=== PATIENT | male | born 1965 | race Caucasian/White ===

== ENCOUNTER 2017-07-19 14:13 | Emergency (ER) | payer OTHER ==
[2017-07-19 16:39] LABS: ADD MAN DIFF? NO
[2017-07-19 16:44] LABS: WHITE BLOOD COUNT 7.9 10^3/ul (4.8-10.8)
[2017-07-19 16:44] LABS: BASOPHILS % 0.4 % (0.0-2.0); EOSINOPHILS # 0.1 10^3/ul (0.0-0.5); EOSINOPHILS % 0.9 % (0.0-7.0); HEMATOCRIT 45.7 % (42.0-52.0); HEMOGLOBIN 15.6 g/dl (14.0-18.0); LYMPHOCYTES # 1.6 10^3/ul (0.8-2.9); LYMPHOCYTES % 20.1 % (15.0-51.0); MEAN CORPUSCULAR HEMOGLOBIN 30.8 pg (29.0-33.0); MEAN CORPUSCULAR HGB CONC 34.1 g/dl (32.0-37.0); MEAN CORPUSCULAR VOLUME 90.3 fl (82.0-101.0); MEAN PLATELET VOLUME 9.4 fl (7.4-10.4); MONOCYTE # 0.5 10^3/ul (0.3-0.9); MONOCYTES % 6.7 % (0.0-11.0); NEUTROPHIL # 5.7 10^3/ul (1.6-7.5); NEUTROPHILS % 71.5 % (39.0-77.0); PLATELET COUNT 268 10^3/UL (140-415); RED BLOOD COUNT 5.06 10^6/ul (4.70-6.10); RED CELL DISTRIBUTION WIDTH 12.7 % (11.5-14.5)
[2017-07-19 17:04] LABS: ANION GAP 17 (8-16); BLOOD UREA NITROGEN 11 mg/dl (7-20); CALCIUM 9.3 mg/dl (8.4-10.2); CARBON DIOXIDE 27 mmol/L (21-31); CHLORIDE 102 mmol/L (97-110); CREATININE 1.01 mg/dl (0.61-1.24); GLUCOSE 132 mg/dl (70-220); POTASSIUM 3.6 mmol/L (3.5-5.1); SODIUM 142 mmol/L (135-144)
[2017-07-19] MEDS: KETOROLAC 15 MG INJ IV (17:15)
[2017-07-19] MEDS: HYDROCODONE/APAP (5/325) TAB PO (17:17)
== END 2017-07-19 18:49 | disposition home or self-care (01) ==
LOC: FTE 14:13
DX: G51.0 Bell's palsy (principal); R40.2142 Coma scale, eyes open, spontaneous, at arrival to emergency department; R40.2252 Coma scale, best verbal response, oriented, at arrival to emergency department; R40.2362 Coma scale, best motor response, obeys commands, at arrival to emergency department
CPT/HCPCS: 70450; 80048; 85025; 96374; 99285-25

== ENCOUNTER 2017-07-20 08:47 | Inpatient (IN) | payer OTHER ==
[2017-07-20] MEDS: ASPIRIN 325 MG TAB PO (09:53)
[2017-07-20] MEDS: SOD CHLORIDE 0.9% 1,000 ML IV ×2 (10:01→14:28)
[2017-07-20 10:11] LABS: ADD MAN DIFF? NO
[2017-07-20 10:14] LABS: WHITE BLOOD COUNT 8.4 10^3/ul (4.8-10.8)
[2017-07-20 10:14] LABS: BASOPHILS % 0.4 % (0.0-2.0); EOSINOPHILS # 0.1 10^3/ul (0.0-0.5); EOSINOPHILS % 1.4 % (0.0-7.0); HEMATOCRIT 47.3 % (42.0-52.0); HEMOGLOBIN 15.8 g/dl (14.0-18.0); LYMPHOCYTES # 1.6 10^3/ul (0.8-2.9); LYMPHOCYTES % 19.2 % (15.0-51.0); MEAN CORPUSCULAR HEMOGLOBIN 29.9 pg (29.0-33.0); MEAN CORPUSCULAR HGB CONC 33.4 g/dl (32.0-37.0); MEAN CORPUSCULAR VOLUME 89.4 fl (82.0-101.0); MEAN PLATELET VOLUME 9.3 fl (7.4-10.4); MONOCYTE # 0.8 10^3/ul (0.3-0.9); MONOCYTES % 9.4 % (0.0-11.0); NEUTROPHIL # 5.8 10^3/ul (1.6-7.5); NEUTROPHILS % 69.2 % (39.0-77.0); PLATELET COUNT 267 10^3/UL (140-415); RED BLOOD COUNT 5.29 10^6/ul (4.70-6.10); RED CELL DISTRIBUTION WIDTH 12.7 % (11.5-14.5)
[2017-07-20 10:31] LABS: ALANINE AMINOTRANSFERASE 59 IU/L (13-69); ALBUMIN 4.4 g/dl (3.3-4.9); ALBUMIN/GLOBULIN RATIO 1.18; ALKALINE PHOSPHATASE 70 IU/L (42-121); ANION GAP 17 (8-16); ASPARTATE AMINO TRANSFERASE 28 IU/L (15-46); BILIRUBIN,INDIRECT 0.3 mg/dl (0-1.1); BILIRUBIN,TOTAL 0.3 mg/dl (0.2-1.3); BLOOD UREA NITROGEN 13 mg/dl (7-20); CALCIUM 9.2 mg/dl (8.4-10.2); CARBON DIOXIDE 24 mmol/L (21-31); CHLORIDE 105 mmol/L (97-110); CHOL/HDL RATIO 4.1 RATIO; CHOLESTEROL 174 mg/dl (100-200); CREATININE 0.97 mg/dl (0.61-1.24); GLUCOSE 131 mg/dl (70-220); HDL CHOLESTEROL 42 mg/dl (28-71); LDL CHOLESTEROL,CALCULATED 105 mg/dl; POTASSIUM 3.8 mmol/L (3.5-5.1); SODIUM 142 mmol/L (135-144); TOTAL PROTEIN 8.1 g/dl (6.1-8.1); TRIGLYCERIDES 137 mg/dl (0-149)
[2017-07-20 10:35] LABS: INR 0.98; PROTIME 13.1 Sec (11.9-14.9)
[2017-07-20 10:36] LABS: PARTIAL THROMBOPLASTIN TIME 24.3 Sec (25.0-35.0)
[2017-07-20 10:47] LABS: TROPONIN-I < 0.012 ng/ml (0.00-0.12)
[2017-07-20 11:18] LABS: AMPHETAMINE/METHAMPHETAMINE Negative (NEGATIVE); BARBITURATES Negative (NEGATIVE); BENZODIAZEPINES Negative (NEGATIVE); CANNABINOIDS Negative (NEGATIVE); COCAINE Negative (NEGATIVE); OPIATES Negative (NEGATIVE)
[2017-07-20] MEDS: ASPIRIN 300 MG SUPP PR (11:49)
[2017-07-20] MEDS ORDERED: ACETAMINOPHEN 325 MG TAB PO (14:30)
[2017-07-20] MEDS ORDERED: ONDANSETRON 4 MG INJ IV (14:30)
[2017-07-20] MEDS ORDERED: ACETAMINOPHEN 650 MG SUPP PR (16:00)
[2017-07-20] MEDS ORDERED: NACL 0.9% 3 ML SYG IV (16:00)
[2017-07-20 16:42] LABS: HEMOGLOBIN A1C 5.5 % (0-5.9)
[2017-07-20] MEDS: DEXTROSE 5%-0.45% NACL 1,000 ML IV ×2 (18:49→22:08)
[2017-07-20] MEDS: ENOXAPARIN 40 MG/0.4 ML SYG SC (18:54)
[2017-07-20] MEDS: ATORVASTATIN 40 MG TAB PO (22:06)
[2017-07-21] MEDS: DEXTROSE 5%-0.45% NACL 1,000 ML IV ×3 (04:54→13:37)
[2017-07-21 08:03] LABS: ANION GAP 15 (8-16); BLOOD UREA NITROGEN 15 mg/dl (7-20); CALCIUM 8.9 mg/dl (8.4-10.2); CARBON DIOXIDE 28 mmol/L (21-31); CHLORIDE 105 mmol/L (97-110); CHOL/HDL RATIO 4.6 RATIO; CHOLESTEROL 154 mg/dl (100-200); CREATININE 1.06 mg/dl (0.61-1.24); GLUCOSE 110 mg/dl (70-220); HDL CHOLESTEROL 33 mg/dl (28-71); LDL CHOLESTEROL,CALCULATED 90 mg/dl; POTASSIUM 3.9 mmol/L (3.5-5.1); SODIUM 144 mmol/L (135-144); TRIGLYCERIDES 153 mg/dl (0-149)
[2017-07-21] MEDS: ASPIRIN 81 MG TAB PO (09:11)
[2017-07-21] MEDS: ACETAMINOPHEN 325 MG TAB PO ×2 (10:44→20:22)
[2017-07-21] MEDS: FAMOTIDINE 20 MG TAB PO ×2 (12:49→17:59)
[2017-07-21] MEDS: ATORVASTATIN 40 MG TAB PO (20:23)
[2017-07-21] MEDS: SOD CHLORIDE 0.9% 100 ML ×2 (20:27→21:03)
[2017-07-21] MEDS: IOHEXOL 100 ML ×2 (20:27→21:03)
[2017-07-22] MEDS: DEXTROSE 5%-0.45% NACL 1,000 ML IV ×2 (01:16→06:50)
[2017-07-22] MEDS: ACETAMINOPHEN 325 MG TAB PO ×2 (03:31→10:20)
[2017-07-22] MEDS: FAMOTIDINE 20 MG TAB PO ×2 (05:57→17:56)
[2017-07-22] MEDS: ASPIRIN 81 MG TAB PO (08:53)
[2017-07-22] MEDS: ONDANSETRON 4 MG INJ IV (08:53)
[2017-07-22 10:25] LABS: ALANINE AMINOTRANSFERASE 59 IU/L (13-69); ALBUMIN 3.8 g/dl (3.3-4.9); ALBUMIN/GLOBULIN RATIO 1.11; ALKALINE PHOSPHATASE 73 IU/L (42-121); ANION GAP 11 (8-16); ASPARTATE AMINO TRANSFERASE 31 IU/L (15-46); BILIRUBIN,INDIRECT 0.5 mg/dl (0-1.1); BILIRUBIN,TOTAL 0.5 mg/dl (0.2-1.3); BLOOD UREA NITROGEN 12 mg/dl (7-20); CALCIUM 9.2 mg/dl (8.4-10.2); CARBON DIOXIDE 26 mmol/L (21-31); CHLORIDE 110 mmol/L (97-110); CREATININE 0.99 mg/dl (0.61-1.24); GLUCOSE 124 mg/dl (70-220); POTASSIUM 3.7 mmol/L (3.5-5.1); SODIUM 143 mmol/L (135-144); TOTAL PROTEIN 7.2 g/dl (6.1-8.1)
[2017-07-22 11:15] LABS: PHOSPHORUS 3.7 mg/dl (2.5-4.9)
[2017-07-22 11:15] LABS: MAGNESIUM 2.2 mg/dl (1.7-2.5)
[2017-07-22] MEDS: ENOXAPARIN 40 MG/0.4 ML SYG SC (12:24)
[2017-07-22] MEDS: ATORVASTATIN 40 MG TAB PO (20:59)
== END 2017-07-22 23:20 | DRG 65 ==
LOC: E/R 08:47 → MS4 17:31
DX: I62.9 Nontraumatic intracranial hemorrhage, unspecified (principal); G81.94 Hemiplegia, unspecified affecting left nondominant side; R13.10 Dysphagia, unspecified; R29.810 Facial weakness; Z79.82 Long term (current) use of aspirin; E78.5 Hyperlipidemia, unspecified; K29.70 Gastritis, unspecified, without bleeding
CPT/HCPCS: 36415; 70450; 70496; 70498; 70544; 70553; 71045; 80048; 80053; 80061; 80307; 83036; 83735; 84100; 84484; 85025; 85610; 85730; 92610; 93005; 93306; 93880; 97110; 97116; 97163; 97165; 97535; 99285-25

== ENCOUNTER 2017-07-22 17:46 | Inpatient (IN) | payer OTHER ==
[2017-07-23] MEDS ORDERED: ONDANSETRON 4 MG INJ IV (00:30)
[2017-07-23] MEDS ORDERED: BISACODYL 10 MG SUPP PR (04:00)
[2017-07-23] MEDS ORDERED: LACTULOSE 30ML CUP PO (04:00)
[2017-07-23 06:47] LABS: ADD MAN DIFF? NO
[2017-07-23] MEDS: FAMOTIDINE 20 MG TAB PO ×2 (06:52→18:46)
[2017-07-23 06:54] LABS: BASOPHIL # 0.1 10^3/ul (0.0-0.1); BASOPHILS % 0.7 % (0.0-2.0); EOSINOPHILS # 0.8 10^3/ul (0.0-0.5); EOSINOPHILS % 8.3 % (0.0-7.0); HEMATOCRIT 45.6 % (42.0-52.0); HEMOGLOBIN 15.3 g/dl (14.0-18.0); LYMPHOCYTES # 2.6 10^3/ul (0.8-2.9); LYMPHOCYTES % 28.1 % (15.0-51.0); MEAN CORPUSCULAR HEMOGLOBIN 30.2 pg (29.0-33.0); MEAN CORPUSCULAR HGB CONC 33.6 g/dl (32.0-37.0); MEAN CORPUSCULAR VOLUME 90.1 fl (82.0-101.0); MEAN PLATELET VOLUME 9.5 fl (7.4-10.4); MONOCYTE # 0.7 10^3/ul (0.3-0.9); MONOCYTES % 8.1 % (0.0-11.0); NEUTROPHILS % 54.6 % (39.0-77.0); PLATELET COUNT 270 10^3/UL (140-415); RED BLOOD COUNT 5.06 10^6/ul (4.70-6.10); RED CELL DISTRIBUTION WIDTH 12.7 % (11.5-14.5)
[2017-07-23 06:54] LABS: WHITE BLOOD COUNT 9.2 10^3/ul (4.8-10.8)
[2017-07-23] MEDS: MAGNESIUM HYDROXIDE 30ML CUP PO (06:54)
[2017-07-23 07:06] LABS: ADD UMIC NO; UR ASCORBIC ACID NEGATIVE (NEGATIVE); UR BILIRUBIN (Dip) NEGATIVE (NEGATIVE); UR BLOOD (Dip) NEGATIVE (NEGATIVE); UR CLARITY CLEAR (CLEAR); UR COLOR YELLOW (YELLOW); UR GLUCOSE (Dip) NEGATIVE (NEGATIVE); UR KETONES (Dip) NEGATIVE (NEGATIVE); UR LEUKOCYTE ESTERASE (Dip) NEGATIVE Leu/ul (NEGATIVE); UR NITRITE (Dip) NEGATIVE (NEGATIVE); UR SPECIFIC GRAVITY (Dip) 1.019 (1.003-1.030); UR TOTAL PROTEIN (Dip) NEGATIVE (NEGATIVE); UR UROBILINOGEN (Dip) NEGATIVE (NEGATIVE)
[2017-07-23 07:13] LABS: ALANINE AMINOTRANSFERASE 56 IU/L (13-69); ALBUMIN 3.7 g/dl (3.3-4.9); ALBUMIN/GLOBULIN RATIO 1.19; ALKALINE PHOSPHATASE 66 IU/L (42-121); ANION GAP 13 (8-16); ASPARTATE AMINO TRANSFERASE 26 IU/L (15-46); BILIRUBIN,INDIRECT 0.4 mg/dl (0-1.1); BILIRUBIN,TOTAL 0.4 mg/dl (0.2-1.3); BLOOD UREA NITROGEN 16 mg/dl (7-20); CALCIUM 9.2 mg/dl (8.4-10.2); CARBON DIOXIDE 29 mmol/L (21-31); CHLORIDE 108 mmol/L (97-110); CREATININE 1.17 mg/dl (0.61-1.24); GLUCOSE 94 mg/dl (70-220); POTASSIUM 3.9 mmol/L (3.5-5.1); SODIUM 146 mmol/L (135-144); TOTAL PROTEIN 6.8 g/dl (6.1-8.1)
[2017-07-23] MEDS: DOCUSATE SODIUM 100 MG CAP PO ×2 (09:25→21:10)
[2017-07-23] MEDS: ASPIRIN 81 MG TAB PO (09:25)
[2017-07-23] MEDS: ENOXAPARIN 40 MG/0.4 ML SYG SC (09:26)
[2017-07-23] MEDS: SENNA TAB PO (21:00)
[2017-07-23] MEDS: ATORVASTATIN 40 MG TAB PO (21:10)
[2017-07-24] MEDS: ACETAMINOPHEN 325 MG TAB PO (01:51)
[2017-07-24] MEDS: FAMOTIDINE 20 MG TAB PO ×2 (05:28→19:01)
[2017-07-24] MEDS: ASPIRIN 81 MG TAB PO (09:50)
[2017-07-24] MEDS: DOCUSATE SODIUM 100 MG CAP PO ×2 (09:50→20:09)
[2017-07-24] MEDS: ENOXAPARIN 40 MG/0.4 ML SYG SC (09:54)
[2017-07-24] MEDS: ATORVASTATIN 40 MG TAB PO (20:09)
[2017-07-24] MEDS: SENNA TAB PO (20:10)
[2017-07-25] MEDS: ACETAMINOPHEN 325 MG TAB PO (01:23)
[2017-07-25] MEDS: FAMOTIDINE 20 MG TAB PO ×2 (06:28→17:45)
[2017-07-25] MEDS: ASPIRIN 81 MG TAB PO (09:14)
[2017-07-25] MEDS: DOCUSATE SODIUM 100 MG CAP PO ×2 (09:14→20:52)
[2017-07-25] MEDS: ENOXAPARIN 40 MG/0.4 ML SYG SC (09:15)
[2017-07-25] MEDS: ATORVASTATIN 40 MG TAB PO (20:51)
[2017-07-25] MEDS: SENNA TAB PO (20:52)
[2017-07-26] MEDS: FAMOTIDINE 20 MG TAB PO ×2 (06:16→18:17)
[2017-07-26] MEDS: ASPIRIN 81 MG TAB PO (11:06)
[2017-07-26] MEDS: DOCUSATE SODIUM 100 MG CAP PO ×2 (11:06→20:21)
[2017-07-26] MEDS: ENOXAPARIN 40 MG/0.4 ML SYG SC (11:09)
[2017-07-26] MEDS: ZOLPIDEM 5 MG TAB PO (20:20)
[2017-07-26] MEDS: ATORVASTATIN 40 MG TAB PO (20:20)
[2017-07-26] MEDS: SENNA TAB PO (20:22)
[2017-07-27] MEDS: FAMOTIDINE 20 MG TAB PO ×2 (06:19→18:03)
[2017-07-27] MEDS: DOCUSATE SODIUM 100 MG CAP PO ×2 (09:20→20:36)
[2017-07-27] MEDS: ASPIRIN 81 MG TAB PO (09:20)
[2017-07-27] MEDS: ENOXAPARIN 40 MG/0.4 ML SYG SC (09:25)
[2017-07-27] MEDS: SENNA TAB PO (20:35)
[2017-07-27] MEDS: ATORVASTATIN 40 MG TAB PO (20:35)
[2017-07-28] MEDS: FAMOTIDINE 20 MG TAB PO ×2 (06:07→17:56)
[2017-07-28] MEDS: ASPIRIN 81 MG TAB PO (08:38)
[2017-07-28] MEDS: DOCUSATE SODIUM 100 MG CAP PO ×2 (08:38→21:00)
[2017-07-28] MEDS: ENOXAPARIN 40 MG/0.4 ML SYG SC (08:39)
[2017-07-28] MEDS: ATORVASTATIN 40 MG TAB PO (20:20)
[2017-07-28] MEDS: SENNA TAB PO (21:00)
[2017-07-29] MEDS: FAMOTIDINE 20 MG TAB PO ×2 (06:21→18:04)
[2017-07-29] MEDS: DOCUSATE SODIUM 100 MG CAP PO ×2 (09:08→22:00)
[2017-07-29] MEDS: ASPIRIN 81 MG TAB PO (09:09)
[2017-07-29] MEDS: ENOXAPARIN 40 MG/0.4 ML SYG SC (09:13)
[2017-07-29] MEDS: SENNA TAB PO (22:00)
[2017-07-29] MEDS: ATORVASTATIN 40 MG TAB PO (22:17)
[2017-07-30] MEDS: ACETAMINOPHEN 325 MG TAB PO (03:19)
[2017-07-30] MEDS: FAMOTIDINE 20 MG TAB PO (06:29)
[2017-07-30] MEDS: DOCUSATE SODIUM 100 MG CAP PO ×2 (09:39→20:26)
[2017-07-30] MEDS: ASPIRIN 81 MG TAB PO (09:39)
[2017-07-30] MEDS: ENOXAPARIN 40 MG/0.4 ML SYG SC (09:40)
[2017-07-30] MEDS: ATORVASTATIN 40 MG TAB PO (20:26)
[2017-07-30] MEDS: SENNA TAB PO (20:26)
[2017-07-31] MEDS: FAMOTIDINE 20 MG TAB PO ×2 (06:21→18:28)
[2017-07-31] MEDS: ASPIRIN 81 MG TAB PO (08:48)
[2017-07-31] MEDS: DOCUSATE SODIUM 100 MG CAP PO ×2 (08:49→20:25)
[2017-07-31] MEDS: ENOXAPARIN 40 MG/0.4 ML SYG SC (08:50)
[2017-07-31] MEDS: ATORVASTATIN 40 MG TAB PO (20:25)
[2017-07-31] MEDS: SENNA TAB PO (20:25)
[2017-08-01] MEDS: FAMOTIDINE 20 MG TAB PO ×2 (06:07→17:17)
[2017-08-01] MEDS: ASPIRIN 81 MG TAB PO (09:01)
[2017-08-01] MEDS: DOCUSATE SODIUM 100 MG CAP PO ×2 (09:01→20:43)
[2017-08-01] MEDS: ENOXAPARIN 40 MG/0.4 ML SYG SC (09:02)
[2017-08-01] MEDS: ATORVASTATIN 40 MG TAB PO (20:40)
[2017-08-01] MEDS: SENNA TAB PO (20:43)
[2017-08-02] MEDS: FAMOTIDINE 20 MG TAB PO ×2 (06:12→18:03)
[2017-08-02] MEDS: ASPIRIN 81 MG TAB PO (09:47)
[2017-08-02] MEDS: DOCUSATE SODIUM 100 MG CAP PO ×2 (09:47→20:37)
[2017-08-02] MEDS: ENOXAPARIN 40 MG/0.4 ML SYG SC (09:48)
[2017-08-02] MEDS: ATORVASTATIN 40 MG TAB PO (20:34)
[2017-08-02] MEDS: ACETAMINOPHEN 325 MG TAB PO (20:34)
[2017-08-02] MEDS: SENNA TAB PO (20:37)
[2017-08-03] MEDS: FAMOTIDINE 20 MG TAB PO ×2 (06:14→17:07)
[2017-08-03] MEDS: ASPIRIN 81 MG TAB PO (08:12)
[2017-08-03] MEDS: DOCUSATE SODIUM 100 MG CAP PO ×2 (08:12→20:37)
[2017-08-03] MEDS: ENOXAPARIN 40 MG/0.4 ML SYG SC (08:13)
[2017-08-03] MEDS: SENNA TAB PO (20:37)
[2017-08-03] MEDS: ATORVASTATIN 40 MG TAB PO (20:37)
[2017-08-04] MEDS: FAMOTIDINE 20 MG TAB PO ×2 (06:37→17:51)
[2017-08-04] MEDS: DOCUSATE SODIUM 100 MG CAP PO ×2 (09:18→21:00)
[2017-08-04] MEDS: ASPIRIN 81 MG TAB PO (09:18)
[2017-08-04] MEDS: ENOXAPARIN 40 MG/0.4 ML SYG SC (09:19)
[2017-08-04] MEDS: ATORVASTATIN 40 MG TAB PO (20:15)
[2017-08-04] MEDS: ACETAMINOPHEN 325 MG TAB PO (20:21)
[2017-08-04] MEDS: SENNA TAB PO (21:00)
[2017-08-05] MEDS: ACETAMINOPHEN 325 MG TAB PO (02:24)
[2017-08-05] MEDS: FAMOTIDINE 20 MG TAB PO (06:00)
[2017-08-05] MEDS: DOCUSATE SODIUM 100 MG CAP PO (09:01)
[2017-08-05] MEDS: ASPIRIN 81 MG TAB PO (09:01)
[2017-08-05] MEDS: ENOXAPARIN 40 MG/0.4 ML SYG SC (09:03)
== END 2017-08-05 15:00 | disposition home health service (06) | DRG 57 ==
LOC: VRC 17:46
PROC: F07Z9FZ Gait Training/Functional Ambulation Treatment using Assistive, Adaptive, Supportive or Protective Equipment (ICD-10-PCS; principal; 2017-07-22)
PROC: F07Z8FZ Transfer Training Treatment using Assistive, Adaptive, Supportive or Protective Equipment (ICD-10-PCS; 2017-07-22)
PROC: F07Z5FZ Bed Mobility Treatment using Assistive, Adaptive, Supportive or Protective Equipment (ICD-10-PCS; 2017-07-22)
PROC: F08Z2FZ Grooming/Personal Hygiene Treatment using Assistive, Adaptive, Supportive or Protective Equipment (ICD-10-PCS; 2017-07-22)
PROC: F08Z0FZ Bathing/Showering Techniques Treatment using Assistive, Adaptive, Supportive or Protective Equipment (ICD-10-PCS; 2017-07-22)
PROC: F08Z1FZ Dressing Techniques Treatment using Assistive, Adaptive, Supportive or Protective Equipment (ICD-10-PCS; 2017-07-22)
DX: I69.354 Hemiplegia and hemiparesis following cerebral infarction affecting left non-dominant side (principal); B00.89 Other herpesviral infection; K29.70 Gastritis, unspecified, without bleeding; E78.00 Pure hypercholesterolemia, unspecified; I69.392 Facial weakness following cerebral infarction; I69.391 Dysphagia following cerebral infarction; R13.10 Dysphagia, unspecified; I69.398 Other sequelae of cerebral infarction; K14.8 Other diseases of tongue; Z79.82 Long term (current) use of aspirin
CPT/HCPCS: 80053; 81003; 85025; 87081; 87086; 92507; 92523; 92526; 92610; 97110; 97112; 97116; 97150; 97163; 97167; 97530; 97535; 97542

== ENCOUNTER 2017-08-21 10:56 | Emergency (ER) | payer OTHER ==
[2017-08-21 12:34] LABS: ADD MAN DIFF? NO
[2017-08-21 12:36] LABS: WHITE BLOOD COUNT 6.7 10^3/ul (4.8-10.8)
[2017-08-21 12:36] LABS: BASOPHIL # 0.1 10^3/ul (0.0-0.1); BASOPHILS % 0.7 % (0.0-2.0); EOSINOPHILS # 0.2 10^3/ul (0.0-0.5); EOSINOPHILS % 2.8 % (0.0-7.0); HEMOGLOBIN 15.9 g/dl (14.0-18.0); LYMPHOCYTES # 1.6 10^3/ul (0.8-2.9); LYMPHOCYTES % 23.8 % (15.0-51.0); MEAN CORPUSCULAR HEMOGLOBIN 30.7 pg (29.0-33.0); MEAN CORPUSCULAR HGB CONC 33.8 g/dl (32.0-37.0); MEAN CORPUSCULAR VOLUME 90.7 fl (82.0-101.0); MONOCYTE # 0.5 10^3/ul (0.3-0.9); NEUTROPHIL # 4.3 10^3/ul (1.6-7.5); NEUTROPHILS % 64.6 % (39.0-77.0); PLATELET COUNT 232 10^3/UL (140-415); RED BLOOD COUNT 5.18 10^6/ul (4.70-6.10); RED CELL DISTRIBUTION WIDTH 11.9 % (11.5-14.5)
[2017-08-21] MEDS: ONDANSETRON 4 MG INJ IV (12:36)
[2017-08-21] MEDS: DIPHENHYDRAMINE 50 MG INJ IV (12:36)
[2017-08-21] MEDS: SOD CHLORIDE 0.9% 500 ML IV (12:36)
[2017-08-21] MEDS: METHYLPREDNISOLONE 125 MG INJ IV (12:36)
[2017-08-21] MEDS: LEVETIRACETAM 1000 MG (PMX) 100 ML IVPB (12:36)
[2017-08-21] MEDS: HYDROmorphONE 1 MG/ML SYG IV (12:37)
[2017-08-21 12:56] LABS: ANION GAP 18 (8-16); BLOOD UREA NITROGEN 10 mg/dl (7-20); CALCIUM 9.6 mg/dl (8.4-10.2); CARBON DIOXIDE 30 mmol/L (21-31); CHLORIDE 103 mmol/L (97-110); CREATININE 1.04 mg/dl (0.61-1.24); GLUCOSE 101 mg/dl (70-220); POTASSIUM 4.3 mmol/L (3.5-5.1); SODIUM 147 mmol/L (135-144)
[2017-08-21 12:58] LABS: INR 0.97
[2017-08-21 12:59] LABS: PARTIAL THROMBOPLASTIN TIME 24.6 Sec (25.0-35.0)
== END 2017-08-21 14:58 | disposition home or self-care (01) ==
LOC: FTE 10:56 → E/R 14:58
DX: G40.109 Localization-related (focal) (partial) symptomatic epilepsy and epileptic syndromes with simple partial seizures, not intractable, without status epilepticus (principal); T78.40XA Allergy, unspecified, initial encounter; Z79.82 Long term (current) use of aspirin
CPT/HCPCS: 36415; 70450; 80048; 85025; 85610; 85730; 96374; 96375; 99285-25

== ENCOUNTER 2018-08-26 16:51 | Inpatient (IN) | payer OTHER ==
[2018-08-26 17:30] LABS: ADD MAN DIFF? NO
[2018-08-26 17:33] LABS: WHITE BLOOD COUNT 8.6 10^3/ul (4.8-10.8)
[2018-08-26 17:33] LABS: BASOPHIL # 0.1 10^3/ul (0.0-0.1); BASOPHILS % 0.7 % (0.0-2.0); EOSINOPHILS # 0.5 10^3/ul (0.0-0.5); HEMATOCRIT 45.7 % (42.0-52.0); HEMOGLOBIN 15.2 g/dl (14.0-18.0); LYMPHOCYTES # 3.5 10^3/ul (0.8-2.9); LYMPHOCYTES % 40.9 % (15.0-51.0); MEAN CORPUSCULAR HEMOGLOBIN 29.3 pg (29.0-33.0); MEAN CORPUSCULAR HGB CONC 33.3 g/dl (32.0-37.0); MEAN CORPUSCULAR VOLUME 88.1 fl (82.0-101.0); MEAN PLATELET VOLUME 8.9 fl (7.4-10.4); MONOCYTE # 0.6 10^3/ul (0.3-0.9); MONOCYTES % 7.1 % (0.0-11.0); NEUTROPHIL # 3.9 10^3/ul (1.6-7.5); NEUTROPHILS % 45.1 % (39.0-77.0); PLATELET COUNT 284 10^3/UL (140-415); RED BLOOD COUNT 5.19 10^6/ul (4.70-6.10)
[2018-08-26 17:50] LABS: ANION GAP 13 (5-13); BLOOD UREA NITROGEN 10 mg/dl (7-20); CALCIUM 9.1 mg/dl (8.4-10.2); CARBON DIOXIDE 25 mmol/L (21-31); CHLORIDE 103 mmol/L (97-110); Estimated GFR > 60 mL/min (>60); GLUCOSE 111 mg/dl (70-220); POTASSIUM 3.9 mmol/L (3.5-5.1); SODIUM 141 mmol/L (135-144)
[2018-08-26 17:58] LABS: INR 0.96; PROTIME 12.9 Sec (11.9-14.9)
[2018-08-26 17:59] LABS: PARTIAL THROMBOPLASTIN TIME 25.4 Sec (23.0-35.0)
[2018-08-26] MEDS: ASPIRIN 325 MG TAB PO (19:41)
[2018-08-27] MEDS: CLOPIDOGREL 75 MG TAB PO ×2 (01:46→08:15)
[2018-08-27 07:26] LABS: CHOL/HDL RATIO 4.8 RATIO; HDL CHOLESTEROL 27 mg/dl (28-71); LDL CHOLESTEROL,CALCULATED 74 mg/dl; TRIGLYCERIDES 146 mg/dl (0-149)
[2018-08-27 07:26] LABS: CHOLESTEROL 130 mg/dl (100-200)
[2018-08-27] MEDS: GABAPENTIN 100 MG CAP PO ×2 (08:14→20:24)
[2018-08-27] MEDS: METOPROLOL (XL) 25 MG TAB PO (08:16)
[2018-08-27] MEDS: ASPIRIN (EC) 81 MG TAB PO (08:17)
[2018-08-27] MEDS: LORATADINE 10 MG TAB PO (08:17)
[2018-08-27] MEDS ORDERED: ASPIRIN (EC) 81 MG TAB PO (09:00)
[2018-08-27] MEDS: LEVETIRACETAM 500 MG TAB PO ×3 (12:13→20:29)
[2018-08-27 13:07] LABS: ADD UMIC NO; UR ASCORBIC ACID NEGATIVE (NEGATIVE); UR BILIRUBIN (Dip) NEGATIVE (NEGATIVE); UR BLOOD (Dip) NEGATIVE (NEGATIVE); UR CLARITY CLEAR (CLEAR); UR COLOR STRAW (YELLOW); UR GLUCOSE (Dip) NEGATIVE (NEGATIVE); UR KETONES (Dip) NEGATIVE (NEGATIVE); UR LEUKOCYTE ESTERASE (Dip) NEGATIVE Leu/ul (NEGATIVE); UR NITRITE (Dip) NEGATIVE (NEGATIVE); UR SPECIFIC GRAVITY (Dip) 1.008 (1.003-1.030); UR TOTAL PROTEIN (Dip) NEGATIVE (NEGATIVE); UR UROBILINOGEN (Dip) NEGATIVE (NEGATIVE)
[2018-08-27 13:31] LABS: AMPHETAMINE/METHAMPHETAMINE Negative (NEGATIVE); BARBITURATES Negative (NEGATIVE); BENZODIAZEPINES Negative (NEGATIVE); CANNABINOIDS Negative (NEGATIVE); COCAINE Negative (NEGATIVE); OPIATES Negative (NEGATIVE)
[2018-08-27] MEDS: ONDANSETRON 4 MG INJ IV ×2 (16:14→20:50)
[2018-08-27] MEDS ORDERED: IOHEXOL 100 ML (20:09)
[2018-08-27] MEDS ORDERED: SOD CHLORIDE 0.9% 100 ML (20:09)
[2018-08-27] MEDS: ATORVASTATIN 80 MG TAB PO (20:24)
[2018-08-27] MEDS ORDERED: ATORVASTATIN 20 MG TAB PO (21:00)
[2018-08-28] MEDS ORDERED: ACETAMINOPHEN 325 MG TAB PO
[2018-08-28 07:51] LABS: ADD MAN DIFF? NO
[2018-08-28 07:57] LABS: BASOPHIL # 0.1 10^3/ul (0.0-0.1); BASOPHILS % 0.6 % (0.0-2.0); EOSINOPHILS # 0.5 10^3/ul (0.0-0.5); EOSINOPHILS % 6.2 % (0.0-7.0); HEMATOCRIT 46.8 % (42.0-52.0); HEMOGLOBIN 15.5 g/dl (14.0-18.0); LYMPHOCYTES # 2.2 10^3/ul (0.8-2.9); LYMPHOCYTES % 28.5 % (15.0-51.0); MEAN CORPUSCULAR HEMOGLOBIN 29.5 pg (29.0-33.0); MEAN CORPUSCULAR HGB CONC 33.1 g/dl (32.0-37.0); MEAN PLATELET VOLUME 9.1 fl (7.4-10.4); MONOCYTE # 0.7 10^3/ul (0.3-0.9); MONOCYTES % 9.4 % (0.0-11.0); NEUTROPHIL # 4.3 10^3/ul (1.6-7.5); PLATELET COUNT 289 10^3/UL (140-415); RED BLOOD COUNT 5.26 10^6/ul (4.70-6.10); RED CELL DISTRIBUTION WIDTH 12.3 % (11.5-14.5)
[2018-08-28 07:57] LABS: WHITE BLOOD COUNT 7.8 10^3/ul (4.8-10.8)
[2018-08-28 08:21] LABS: ALANINE AMINOTRANSFERASE 56 IU/L (13-69); ALBUMIN/GLOBULIN RATIO 1.21; ALKALINE PHOSPHATASE 54 IU/L (42-121); ANION GAP 8 (5-13); ASPARTATE AMINO TRANSFERASE 34 IU/L (15-46); BILIRUBIN,INDIRECT 0.5 mg/dl (0-1.1); BILIRUBIN,TOTAL 0.5 mg/dl (0.2-1.3); BLOOD UREA NITROGEN 15 mg/dl (7-20); CALCIUM 9.4 mg/dl (8.4-10.2); CARBON DIOXIDE 28 mmol/L (21-31); CHLORIDE 105 mmol/L (97-110); CREATININE 1.21 mg/dl (0.61-1.24); Estimated GFR > 60 mL/min (>60); GLUCOSE 93 mg/dl (70-220); POTASSIUM 4.6 mmol/L (3.5-5.1); SODIUM 141 mmol/L (135-144); TOTAL PROTEIN 7.3 g/dl (6.1-8.1)
[2018-08-28 08:24] LABS: MAGNESIUM 2.5 mg/dl (1.7-2.5)
[2018-08-28 08:24] LABS: PHOSPHORUS 4.1 mg/dl (2.5-4.9)
[2018-08-28] MEDS: LEVETIRACETAM 500 MG TAB PO (08:39)
[2018-08-28] MEDS: CLOPIDOGREL 75 MG TAB PO (08:40)
[2018-08-28] MEDS: LORATADINE 10 MG TAB PO (08:40)
[2018-08-28] MEDS: GABAPENTIN 100 MG CAP PO (08:40)
[2018-08-28] MEDS: METOPROLOL (XL) 25 MG TAB PO (08:41)
[2018-08-28] MEDS: ASPIRIN (EC) 81 MG TAB PO (10:18)
== END 2018-08-28 16:59 | disposition home or self-care (01) | DRG 65 ==
LOC: TEL 19:22 → E/R 16:51
DX: I63.9 Cerebral infarction, unspecified (principal); I69.354 Hemiplegia and hemiparesis following cerebral infarction affecting left non-dominant side; R20.0 Anesthesia of skin; I10 Essential (primary) hypertension; G40.909 Epilepsy, unspecified, not intractable, without status epilepticus; E78.5 Hyperlipidemia, unspecified; Z79.82 Long term (current) use of aspirin; Z88.0 Allergy status to penicillin
CPT/HCPCS: 36415; 70450; 70496; 70498; 70551; 80048; 80053; 80061; 80307; 81003; 82607; 83036; 83735; 84100; 84443; 85025; 85610; 85730; 92610; 93306; 97162; 99285-25